=== PATIENT | male | born 1940 | race Caucasian/White ===

== ENCOUNTER 2016-04-23 06:46 | Observation (INO) | payer OTHER, MEDICARE ==
[2016-04-23] VITALS (10 sets, daily range): BP systolic 133–163; BP diastolic 77–94
[~2016-04-23] VITALS: Ht 182.9 cm; Wt 93.0 kg
--- NOTE | ~2016-04-23 | D ---
[facility] [place] [address] DISCHARGE SUMMARY Name: JAYDON BERNAL Room #: 209-P [facility] M.R.#: [id number] Admission: 04/23/16 Attend Phys: Ran Martin MD Discharge: 04/24/16 Date of : 38 Report #: [id number] THIS REPORT FOR: //name// CC: Harpal Martin DATE OF SERVICE: 04/24/2016 DISCHARGE DIAGNOSES: 1. Nonischemic cardiomyopathy. 2. Permanent atrial fibrillation. 3. Class II-III heart failure symptoms. 4. Pacemaker implantation for bradycardia with a Biotronik VVI device. 5. Diabetes mellitus. PROCEDURES PERFORMED: 1. Upgrade to a biventricular ICD for my single chamber pacemaker. 2. Explantation of an implantable loop recorder. HISTORY OF PRESENT ILLNESS: The patient is a 75-year-old with history of permanent AFib and nonischemic cardiomyopathy, status post Biotronik pacemaker implantation for bradycardia who developed worsening ejection fraction despite optimal medical therapy with beta sarai and Entresto. As such, he was here for upgrade from a pacemaker to a biventricular ICD for primary prevention of sudden cardiac . The patient's procedure was successful. The LV lead was placed in a posterior lateral branch and a new ICD lead was positioned, which was single coil, I did leave the old RV lead in as it has been in for over 9 months. I programmed the quadripolar lead to pace from the most basal configuration and I paced the LV lead 30 milliseconds prior to the RV lead, which resulted in changing his QRS duration from 190 milliseconds down to 110 milliseconds. After performing the ICD, I removed the implantable loop recorder. HOSPITAL COURSE: The patient was monitored overnight, received IV antibiotics and standard cardiac medications. He had no complications overnight. On telemetry, he remained Bi-V paced. The following day, a device interrogation was performed and demonstrated a stable RV and LV pacing and sensing thresholds. A chest x-ray was also performed that showed no pneumothorax and per my review, the leads remained in stable position. On physical exam, his vitals were stable. Cardiovascular and pulmonary exam were within normal limits and his incision was healing nicely with some slight ecchymosis. As such, he was deemed stable for discharge home with followup in my clinic in 7-10 days. DISCHARGE MEDICATIONS: Included azathioprine, metformin, which will be resumed in 48 hours; glimepiride, omega-3 fatty acid, multivitamin, amino acids, [address] [address] DISCHARGE SUMMARY Name: JAYDON BERNAL Room #: 209-P [facility].#: [id number] Admission: 04/23/16 Attend Phys: Ran Martin MD Discharge: 04/24/16 Date of : 38 Report #: [id number] warfarin to be started tonight, calcitriol, Synthroid, Coreg 12.5 b.i.d., Lasix 40 a day, and Entresto 49/51 mg twice a day. <ELECTRONICALLY SIGNED> By: Ran Martin MD 04/25/16 1350 0901 0926 Ran Martin MD /nt
--- NOTE | ~2016-04-23 | H ---
[facility] [place] [address] [place] [address] HISTORY AND PHYSICAL Name: JAYDON BERNAL Room #: 209-P [facility] Julio César MJulio#: [id number] Admission: 04/23/16 Attend Phys: Ran Martin MD Discharge: 04/24/16 Date of : 38 Report #: [id number] THIS REPORT FOR: //name// CC: Harpal Martin DATE OF SERVICE: 04/23/2016 REASON FOR HISTORY AND PHYSICAL: Upgrade to a Bi-V ICD. HISTORY OF PRESENT ILLNESS: The patient is a 75-year-old with history of a nonischemic cardiomyopathy who is here for upgrade from a pacemaker to a Bi-V ICD. He denies any chest pain. His shortness of breath is stable and at baseline. He has no PND, orthopnea. He has no presyncope or syncope. PAST MEDICAL HISTORY: 1. Nonischemic cardiomyopathy, EF 20-25%. 2. Permanent atrial fibrillation, on warfarin. 3. Symptomatic bradycardia, status post VVI Biotronik pacemaker back in 08/02/2015. 4. LINQ implant. 5. 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 6. Hypertension. 7. Diabetes. 8. Obstructive sleep apnea. 9. Echo 06/25/2015 showing EF of 40%. 10. Interstitial lung disease. FAMILY HISTORY: Significant for mother with pacemaker. SOCIAL HISTORY: Does not smoke. ALLERGIES: None. MEDICATIONS: Reviewed and include warfarin, ____, Coreg. REVIEW OF SYSTEMS: A 12-point review of systems was performed and is negative other than what I mentioned above. PHYSICAL EXAMINATION: VITAL SIGNS: Reviewed and are stable and fit. GENERAL: No acute distress. HEENT: Oropharynx is clear. NECK: Supple, no thyromegaly. CARDIOVASCULAR: Regular rate and rhythm. No murmurs, rubs, gallops. LUNGS: Clear to auscultation bilaterally. [facility] [address] [place] [address] HISTORY AND PHYSICAL Name: JAYDON BERNAL Room #: 209-P [facility]..#: [id number] Admission: 04/23/16 Attend Phys: Ran Martin MD Discharge: 04/24/16 Date of : 38 Report #: [id number] ABDOMEN: Soft, nontender, nondistended, no hepatosplenomegaly. EXTREMITIES: There is no clubbing, cyanosis, edema. NEUROLOGIC: Cranial nerves 2-12 are intact. LABORATORY DATA: Reviewed and his creatinine, white count, hemoglobin and platelets are stable. His INR is 1.4. SUMMARY: The patient is a 75-year-old with nonischemic cardiomyopathy, class 2-3 heart failure symptoms, who has been on optimal medical therapy and his EF remains 20-25%. As such, she is here for upgrade from a VVI pacemaker to a biventricular ICD. We discussed the details of the procedure including the risks, which include but not limited to bleeding, infection, vascular damage, cardiac perforation, pneumothorax. His and daughter understand these risks and are willing to proceed. <ELECTRONICALLY SIGNED> By: Ran Martin MD 04/28/16 1227 0815 0850 Ran Martin MD /nt
--- NOTE | ~2016-04-23 | P ---
[facility] [place] [address] PROCEDURE REPORT Name: JAYDON BERNAL Room #: 209-P [facility] M.R.#: [id number] Admission: 04/23/16 Attend Phys: Ran Martin MD Discharge: 04/24/16 Date of : 38 Report #: [id number] THIS REPORT FOR: //name// CC: Harpal Martin DATE OF SERVICE: 04/23/2016 PROCEDURE: Bi-V ICD upgrade. PREOPERATIVE DIAGNOSIS: Nonischemic cardiomyopathy. POSTOPERATIVE DIAGNOSIS: Nonischemic cardiomyopathy. HISTORY OF PRESENT ILLNESS: The patient is a 75-year-old with a history of permanent AFib, nonischemic cardiomyopathy status post Biotronik pacemaker implantation, who has developed worsening LV function, likely related to chronic RV pacing. He has been on optimal medical therapy for over 3 months including Entresto and Coreg. He is here for biventricular ICD upgrade and removal of a Medtronic LINQ implantable loop recorder. ANESTHESIA: The patient underwent MAC anesthesia with no anesthesia related complications. DESCRIPTION OF PROCEDURE: The patient underwent informed consent. We discussed the details of the procedure including the risks, which include, but not limited to bleeding, infection, vascular damage, cardiac perforation, and pneumothorax. He understood these risks and was willing to proceed. He was brought to the EP laboratory in a fasting and sedated state and prepped and draped in a sterile fashion. He received IV Ancef prior to initiation of the procedure and a venogram was performed to demonstrate patency of the left axillary vein. The pacemaker was programmed to asynchronous mode. Next, I injected 10 mL of lidocaine at the prior incision site. An incision was made and the pocket was entered using Bovie and blunt dissection. Next, I expanded the pocket to make room for the new device and made this more medial. Next, I obtained access to the left axillary vein times 2 using the extrathoracic approach and guidewires were advanced under fluoroscopy into the right atrium. Sheaths were positioned using the modified Seldinger technique. Next, a RV lead was positioned in the right ventricular apex with adequate pacing and sensing thresholds and this lead was sutured to the prepectoral fascia using Ethibond suture. Next, I placed the coronary sinus guide sheath and easily obtained access to the coronary sinus. Using a balloon, I performed a venogram, which showed a posterior lateral branch with that bifurcated into 2 other branches. There were really no other options. I was able to position a quadripolar lead into this vessel, which took about 20 minutes to access. At this site, there [address] [address] PROCEDURE REPORT Name: JAYDON BERNAL Room #: 209-P [facility] Julio César M.R.#: [id number] Admission: 04/23/16 Attend Phys: Ran Martin MD Discharge: 04/24/16 Date of : 38 Report #: [id number] was a good pacing threshold, but there was phrenic nerve capture anywhere between 5 and 10 volts. Fortunately, the thresholds were much lower than this. Next, the sheath was split, the lead remained in stable position and then the lead was sutured to the prepectoral fascia. Next, I disconnected the Biotronik pacemaker from its lead and I capped this lead. I decided against trying to remove this given that it has been in for over 6 months. I tested the thresholds via the device and they were stable. Next, I place the device and leads into the pocket and irrigated the pocket with vancomycin solution and then closed the pocket in 3 layers using 2-0 for the deep layer, 3-0 for the mid layer and 4-0 for the subcuticular layer. Surgical glue was placed on the skin. Next, we prepped the site over the LINQ. I injected 1 mL of lidocaine, an incision was made and I was able to pull out the LINQ. I then performed one suture using 2-0. I put some surgical glue on the outer skin layer as well . The patient awoke neurologically and hemodynamically intact with no complications and there was 10 mL of blood loss. The explanted pacemaker was a Biotronik model Eluna, serial #[id number]. The newly implanted generator was a [employer] model # [id number], serial #[id number]. The ICD lead was a [employer] model #7122Q, 58 cm, serial #[id number]. This lead demonstrated R-wave greater than 12, pacing impedance of 460 ohms, the pacing threshold of 0.75 volts at 0.5 milliseconds. The LV lead was a [employer] model #1458Q, 86 cm, serial #[id number]. This lead demonstrated a pacing impedance of 730 ohms, pacing threshold 1.25 volts at 0.5 milliseconds and I programmed the device in the M3-P4 pacing configuration. The rational why I used this pacing configuration is was the most basal configuration to provide the most physiologic ventricular activation. There was phrenic nerve capture in this pacing configuration, but at 5 volts. The LV lead was programmed to pace 30 milliseconds prior to the RV lead. This resulted in a paced QRS duration of 110 milliseconds. Previously, the QRS paced duration was 190 milliseconds. The RV lead that was capped and left in the pocket was a Biotronik Setrox S 60, serial #[id number]. The device was programmed to the VVIR 60-120 mode. The VT zone was set at 180-220 beats per minute with 3 rounds of bursts followed by 3 rounds of ramp followed by max output shocks. The VF zone was programmed at greater than 220 beats per minute with ATP while charging followed by max output shocks. CONCLUSIONS: 1. Successful upgrade from a pacemaker to a Bi-V ICD. 2. Satisfactory right ventricular and left ventricular pacing and sensing thresholds. 3. Successful removal of the Medtronic implantable loop recorder. <ELECTRONICALLY SIGNED> By: Ran Martin MD 04/25/16 1347 [id number] 1312 Ran Martin MD /nt
[~2016-04-23 06:46] MED LIST: ALDACTONE25 MG PO; AMARYL2 M1 PO; AMINO ACID1 EACH PO; ASPIR 8181 MG PO; CALCITRIOL0.25 MCG PO; CATAPRES0.1 MG PO; COREG6.25 MG PO; COUMADIN 3 MG TA3 M1 PO; ENOXAPARIN30 MG/0.1 SUBQ; GLUCOPHAGE1000 MG PO; HYDROCHLOROTH12.5 M1 PO; HYDROCHLOROTHIA25 M2 PO; HYDROCODON-ACE1 EAC7 PO; HYDROCODONE-AP1 EAC6 PO; HYDROXYCHLOROQ200 M1 PO; IMURAN 50MG TAB50 M1 PO; KEFLEX500 MG PO; LASIX 40 MG TAB40 M2 PO; LEVOTHYROXINE0.05 MG PO; LISINOPRIL20 MG PO; METFORMIN HCL500 MG PO; OMEGA-31000 M1 PO; PRINIVIL20 MG PO; UNICOMPLEX M TA1 TA1 PO; ZESTRIL20 MG PO; [UNRECOGNIZED DRUG - OTHER] PO
[2016-04-23] MEDS ORDERED: ENTRESTO 49 MG1 EACH PO (07:23)
[2016-04-23 07:40] LABS: ABSOLUTE NEUTROPHILS 4.2 thou/uL (1.4-8.2); BASOPHILS 1.2 % (0.0-2.0); EOSINOPHILS 7.5 % (0.0-3.0); HEMATOCRIT 40.5 % (42.0-52.0); HEMOGLOBIN 13.7 gm/dL (14.0-18.0); LYMPHOCYTES 14.1 % (24.0-44.0); MCHC 33.9 % (28.0-37.0); MCV 94.4 fL (80.0-100.0); MONOCYTES 7.8 % (1.0-8.0); PLATELET COUNT 183 thou/uL (150-400); POLYS 69.4 % (36.0-66.0); RDW 14.9 % (10.5-14.5)
[2016-04-23 07:41] LABS: MANUAL DIFF NO
[2016-04-23 07:44] LABS: CALCIUM 8.9 mg/dL (8.5-10.1); CREATININE 1.5 mg/dL (0.6-1.3); POTASSIUM 3.8 mmol/L (3.5-5.1)
[2016-04-23 07:51] LABS: ALBUMIN 3.2 g/dL (3.4-5.0); TOTAL BILIRUBIN 0.9 mg/dL (<0.1-1.0); TOTAL PROTEIN 7.1 g/dL (6.4-8.2)
[2016-04-23 07:53] LABS: APTT 28.7 Seconds (24.5-32.8); INR 1.4
[2016-04-24 00:14] VITALS: BP 146/93
[2016-04-24 04:00] VITALS: BP 150/89
[2016-04-24 09:00] VITALS: BP 162/91
[2016-04-24 12:05] VITALS: BP 151/84
[2016-04-24 12:10] VITALS: BP 162/91
== END 2016-04-24 14:33 | disposition home or self-care (01) ==
LOC: CATH 06:46 → 2N 12:01 → CATH 12:03 → 2N 04-24 14:33
PROVIDERS: Internal Medicine Cardiovascular Disease
DX: I42.9 Cardiomyopathy, unspecified (principal); I48.2 Chronic atrial fibrillation; E11.9 Type 2 diabetes mellitus without complications; I10 Essential (primary) hypertension; Z95.0 Presence of cardiac pacemaker; Z79.01 Long term (current) use of anticoagulants; Z79.899 Other long term (current) drug therapy